=== PATIENT | female | born 1950 | race Caucasian/White ===

== ENCOUNTER → 2016-09-24 | Outpatient (CLI) | payer OTHER ==
--- NOTE | 2016-09-24 13:48 | DIAGNOSTIC IMAGING REPORT ---
ULTRASOUND OF THE CAROTID ARTERIES CLINICAL HISTORY: Strokelike symptoms. COMPARISON STUDY: No priors. TECHNIQUE: Real-time, grayscale, and color Doppler sonography of the carotid arteries is performed. Images are reviewed in the transverse and longitudinal planes. FINDINGS: Blood pressure in the right arm measures 144/81 and blood pressure in the left arm measures 140/76. The carotid arteries are patent bilaterally and demonstrate antegrade flow. There is minimal atherosclerotic plaque seen. Normal doppler arterial waveforms are seen throughout. Velocity measurements are listed below. Common carotid peak systolic velocity (cm/sec): RIGHT: 86 LEFT: 75 ICA proximal peak systolic velocity (cm/sec): RIGHT: 47 LEFT: 65 ICA mid peak systolic velocity (cm/sec): RIGHT: 66 LEFT: 57 ICA distal peak systolic velocity (cm/sec): RIGHT: 59 LEFT: 59 ICA/CC peak systolic ratio: RIGHT: 0.8 LEFT: 0.9 Antegrade flow was shown in the vertebral arteries. The external carotid arteries are patent. IMPRESSION: 1. There is no sonographic evidence of hemodynamically significant stenosis in the right or left carotid arterial system. 2. Antegrade flow is shown in the vertebral arteries. Electronically signed by: Neal Varma M.D. 09/24/2016 1:47 PM Dictated Date/Time: 09/24/2016 1:45 PM
--- NOTE | 2016-09-24 14:32 | DIAGNOSTIC IMAGING REPORT ---
CT ANGIOGRAM OF THE BRAIN COMBO CLINICAL HISTORY: Follow-up stroke. COMPARISON STUDY: No prior studies are available for comparison at the time of dictation. TECHNIQUE: Before and following the IV administration of 94 cc of Optiray 320, CT angiogram of the brain was performed from the skull base to the vertex. Images are reviewed in the axial, sagittal, and coronal planes. 3-D MIPS images are created and assessed. IV contrast was administered without complication. CT DOSE: 731.86 mGy.cm FINDINGS: Brain parenchyma: There are age-related involutional changes noting moderate to advanced confluent subcortical and periventricular microangiopathic disease. Chronic appearing lacunar infarcts are identified within the basal ganglia bilaterally. A chronic appearing infarct is also seen in the left cerebellar hemisphere. There is no hemorrhage, mass effect, or evidence of acute territorial ischemia by CT criteria. There is no evidence of enhancing mass lesion on the angiogram phase images. No extra-axial fluid collection is seen. Modi-white matter differentiation is preserved. Ventricles, sulci, and cisterns: Normal in configuration. CT angiogram of the brain: There is atherosclerotic calcification of the cavernous carotid arteries. The [place] of [place] is developmentally complete. The internal carotid arteries are widely patent, as are the anterior and middle cerebral arteries. The vertebrobasilar system and posterior cerebral arteries are widely patent. The vertebral arteries are codominant. There is no aneurysm, high-grade stenosis, or focal vessel cutoff identified throughout the intracranial circulation. Dural sinuses: Clear as visualized. Orbits: The bony orbits are intact. The orbital contents are normal as visualized. Sinuses and mastoids: The visualized paranasal sinuses are clear. The mastoid air cells are well pneumatized. Calvarium: Unremarkable. IMPRESSION: 1. Senescent changes and chronic appearing infarcts as above. There is no hemorrhage, mass effect, or evidence of acute territorial ischemia by CT criteria. 2. Unremarkable CT angiogram of the brain. Electronically signed by: Neal Varma M.D. 09/24/2016 2:31 PM Dictated Date/Time: 09/24/2016 2:25 PM
--- NOTE | 2016-09-24 15:25 | ECHOCARDIOGRAM REPORT ---
*NOTICE TO RECEIVING [employer]Y This information is strictly Confidential and protected under [place] law. [place] law prohibits you from making any further disclosure of this information unless further disclosure is expressly permitted by the written consent of the person to whom it pertains or is authorized by law. A general authorization for the release of medical or other information is not sufficient for this purpose. Hospital accepts no responsibility if the information is made available to any other person, INCLUDING THE PATIENT. Interpretation Summary * Name: WILLIAM GROSS Study Date: 09/24/2016 03:22 PM BP: 139/75 mmHg * Patient Location: [facility] HR: 54 * : 1950 (M/d/yyyy) Gender: Female Height: 69 in * Age: 66 yrs Ethnicity: [place] Weight: 210 lb * Ordering Physician: Kyleigh Aguiar * Referring Physician: Kyleigh AguiarOKristal * Performed By: Gavi Terrell RDCS * * Reason For Study: CVA * BSA: 2.1 m2 * History: CVA * -- Conclusions -- * Left ventricular systolic function is normal. * No regional wall motion abnormalities noted. * Ejection Fraction = 60-65%. * There is severe concentric left ventricular hypertrophy. * Grade I diastolic dysfunction, (abnormal relaxation pattern). * Injection of contrast documented no interatrial shunt. Procedure Details * A saline contrast injection was performed to assess for cardiac shunting. * The injection was performed through an intravenous line in the left arm. * The attending nurse who injected the saline contrast was JESUS BELL RN. * A total of 20 cc of agitated saline was given. Left Ventricle * The left ventricular cavity is small. * There is severe concentric left ventricular hypertrophy. * Ejection Fraction = 60-65%. * Left ventricular systolic function is normal. * No regional wall motion abnormalities noted. Right Ventricle * The right ventricle is not well visualized. * The right ventricular systolic function is normal as assessed by tricuspid annular plane systolic excursion (TAPSE) (normal >1.5 cm). Atria * The left atrium is mildly dilated. * Right atrial size is normal. * Injection of contrast documented no interatrial shunt. Mitral Valve * The mitral valve anatomy is normal. * There is no mitral valve stenosis. * Significant mitral regurgitation is absent. Tricuspid Valve * The tricuspid valve is not well visualized, but is grossly normal. * Significant tricuspid regurgitation is absent. Aortic Valve * The aortic valve is normal in structure and function. * No hemodynamically significant valvular aortic stenosis. * There is no significant aortic regurgitation. Pulmonic Valve * The pulmonary valve is not well seen, but the Doppler examination is normal without significant regurgitation or stenosis. * Trace pulmonic valvular regurgitation. Great Vessels * The aortic root is normal size. Pericardium/Pleural * There is no pericardial effusion. Great Vessels * Normal inferior vena cava size and collapsability with sniff indicates a normal right atrial pressure of 3 mmHg Left Ventricular Diastolic Function * Grade I diastolic dysfunction, (abnormal relaxation pattern). MMode 2D Measurements and Calculations IVSd 1.7 cm IVSs 2.0 cm LVIDd 5.2 cm LVIDs 3.4 cm LVPWd 1.2 cm LVPWs 2.1 cm IVS/LVPW 1.4 FS 33.9 % EDV(Teich) 128.4 ml ESV(Teich) 48.4 ml EF(Teich) 62.4 % EDV(cubed) 139.1 ml ESV(cubed) 40.3 ml EF(cubed) 71.1 % % IVS thick 18.5 % % LVPW thick 72.6 % LV mass(C)d 331.7 grams LV mass(C)dI 157.3 grams/m\S\2 LV mass(C)s 330.4 grams LV mass(C)sI 156.7 grams/m\S\2 SV(Teich) 80.1 ml SI(Teich) 38.0 ml/m\S\2 SV(cubed) 98.9 ml SI(cubed) 46.9 ml/m\S\2 Ao root diam 3.4 cm Ao root area 9.1 cm\S\2 LA dimension 3.8 cm LA/Ao 1.1 LVAd ap4 29.7 cm\S\2 LVLd ap4 7.4 cm EDV(MOD-sp4) 94.9 ml EDV(sp4-el) 101.1 ml LVAs ap4 17.9 cm\S\2 LVLs ap4 6.6 cm ESV(MOD-sp4) 42.2 ml ESV(sp4-el) 41.4 ml EF(MOD-sp4) 55.5 % EF(sp4-el) 59.0 % LVAd ap2 23.2 cm\S\2 LVLd ap2 8.0 cm EDV(MOD-sp2) 58.7 ml EDV(sp2-el) 57.2 ml LVAs ap2 12.5 cm\S\2 LVLs ap2 6.2 cm ESV(MOD-sp2) 22.5 ml ESV(sp2-el) 21.5 ml EF(MOD-sp2) 61.8 % EF(sp2-el) 62.5 % LVLd %diff 7.6 % EDV(MOD-bp) 73.7 ml LVLs %diff -6.65 % ESV(MOD-bp) 31.6 ml EF(MOD-bp) 57.1 % SV(MOD-sp4) 52.7 ml SI(MOD-sp4) 25.0 ml/m\S\2 SV(MOD-sp2) 36.3 ml SI(MOD-sp2) 17.2 ml/m\S\2 SV(MOD-bp) 42.1 ml SI(MOD-bp) 20.0 ml/m\S\2 SV(sp4-el) 59.7 ml SI(sp4-el) 28.3 ml/m\S\2 SV(sp2-el) 35.8 ml SI(sp2-el) 17.0 ml/m\S\2 Doppler Measurements and Calculations MV E max ana paula 56.9 cm/sec MV A max ana palua 85.0 cm/sec MV E/A 0.67 MV dec time 0.25 sec Ao V2 max 150.7 cm/sec Ao max PG 9.1 mmHg Ao max PG (full) 3.4 mmHg LV V1 max PG 5.7 mmHg LV V1 max 119.4 cm/sec TR max ana paula 235.5 cm/sec
== END | disposition home or self-care (01) ==
LOC: C.ULTR 13:08
PROVIDERS: ATTEND Psychiatry & Neurology Neurology
DX: I63.9 Cerebral infarction, unspecified (principal); I51.7 Cardiomegaly; I65.23 Occlusion and stenosis of bilateral carotid arteries; I25.10 Atherosclerotic heart disease of native coronary artery without angina pectoris

== ENCOUNTER → 2016-10-01 | Outpatient (CLI) | payer OTHER ==
[2016-10-01 14:43] LABS: BASO % 0.8 %; BASO ABS # 0.07 K/uL (0-0.2); EOS % 3.3 %; HEMATOCRIT 34.2 % (37-47); IG% 0.4 %; LYMPH % 33.2 %; LYMPH ABS # 2.98 K/uL (1.2-3.4); MEAN CELL VOLUME 62.6 fL (80-100); MEAN CORPUSCULAR HEMOGLOBIN 19.6 pg (25-34); MEAN CORPUSCULAR HGB CONC 31.3 g/dl (32-36); MONO % 4.9 %; NEUT % 57.4 %; PLATELET COUNT 215 K/uL (130-400); RED BLOOD COUNT 5.46 M/uL (4.2-5.4); WHITE BLOOD COUNT 8.97 K/uL (4.8-10.8)
[2016-10-01 14:56] LABS: BLOOD UREA NITROGEN 10 mg/dl (7-18); BUN/CREATININE RATIO 10.4 (10-20); CARBON DIOXIDE 25 mmol/L (21-32); CHLORIDE 105 mmol/L (98-107); CREATININE 0.92 mg/dl (0.60-1.20); GLUCOSE 167 mg/dl (70-99); POTASSIUM 3.3 mmol/L (3.5-5.1); SODIUM 140 mmol/L (136-145)
[2016-10-01 16:12] LABS: COMPLETE YES; MICROCYTOSIS PRESENT; OVALOCYTES 1+
== END | disposition home or self-care (01) ==
LOC: C.LAB1850 12:39
PROVIDERS: ATTEND Nurse Practitioner Adult Health
DX: F32.9 Major depressive disorder, single episode, unspecified (principal); R41.3 Other amnesia; E03.9 Hypothyroidism, unspecified

== ENCOUNTER → 2017-01-02 | Outpatient (CLI) | payer OTHER ==
[2017-01-02 17:32] LABS: BASO % 0.9 %; BASO ABS # 0.09 K/uL (0-0.2); EOS % 2.8 %; HEMATOCRIT 34.4 % (37-47); IG% 0.2 %; LYMPH % 33.5 %; LYMPH ABS # 3.22 K/uL (1.2-3.4); MEAN CELL VOLUME 61.2 fL (80-100); MEAN CORPUSCULAR HEMOGLOBIN 18.1 pg (25-34); MEAN CORPUSCULAR HGB CONC 29.7 g/dl (32-36); MONO % 4.4 %; NEUT % 58.2 %; PLATELET COUNT 223 K/uL (130-400); RED BLOOD COUNT 5.62 M/uL (4.2-5.4)
[2017-01-02 17:44] LABS: CHOLESTEROL/HDL RATIO 5.2
[2017-01-02 17:56] LABS: COMPLETE YES; ECHINOCYTES 2+; MICROCYTOSIS PRESENT
[2017-01-03 06:21] LABS: ESTIMATED AVERAGE GLUCOSE 263 mg/dl; HA1C FLAG Normal (Normal)
== END | disposition home or self-care (01) ==
LOC: C.LABPBG 11:32
PROVIDERS: ATTEND Nurse Practitioner Adult Health
DX: D64.9 Anemia, unspecified (principal); I67.9 Cerebrovascular disease, unspecified; R73.9 Hyperglycemia, unspecified

== ENCOUNTER → 2017-04-01 | Outpatient (CLI) | payer OTHER ==
[2017-04-01 17:53] LABS: BASO % 0.7 %; BASO ABS # 0.07 K/uL (0-0.2); EOS % 4.2 %; HEMATOCRIT 28.6 % (37-47); IG% 0.4 %; LYMPH ABS # 2.53 K/uL (1.2-3.4); MEAN CELL VOLUME 59.6 fL (80-100); MEAN CORPUSCULAR HEMOGLOBIN 17.3 pg (25-34); MONO % 5.2 %; NEUT % 62.5 %; PLATELET COUNT 284 K/uL (130-400); WHITE BLOOD COUNT 9.37 K/uL (4.8-10.8)
[2017-04-01 18:15] LABS: COMPLETE YES; ECHINOCYTES 1+; OVALOCYTES 1+; SCHISTOCYTES 1+
[2017-04-01 18:37] LABS: ALT/SGPT 27 U/L (12-78); AST/SGOT 15 U/L (15-37); BLOOD UREA NITROGEN 14 mg/dl (7-18); BUN/CREATININE RATIO 18.2 (10-20); CALCIUM 8.5 mg/dl (8.5-10.1); CARBON DIOXIDE 23 mmol/L (21-32); CHLORIDE 108 mmol/L (98-107); CREATININE 0.76 mg/dl (0.60-1.20); GLUCOSE 228 mg/dl (70-99); POTASSIUM 3.2 mmol/L (3.5-5.1); SODIUM 141 mmol/L (136-145)
[2017-04-01 18:38] LABS: ALB/GLOB RATIO 0.9 (0.9-2); ALKALINE PHOSPHATASE 76 U/L (45-117)
[2017-04-02 06:13] LABS: ESTIMATED AVERAGE GLUCOSE 169 mg/dl; HA1C FLAG Normal (Normal)
== END | disposition home or self-care (01) ==
LOC: C.LABPBG 13:54
PROVIDERS: ATTEND Nurse Practitioner Adult Health
DX: E11.65 Type 2 diabetes mellitus with hyperglycemia (principal); D64.9 Anemia, unspecified; I10 Essential (primary) hypertension

== ENCOUNTER → 2017-04-09 | Outpatient (CLI) | payer OTHER | END | disposition home or self-care (01) | LOC: C.LABPBG 14:17 | PROVIDERS: ATTEND Nurse Practitioner Adult Health | DX: E11.65 Type 2 diabetes mellitus with hyperglycemia (principal); Z86.39 Personal history of other endocrine, nutritional and metabolic disease ==

== ENCOUNTER → 2017-09-02 | Outpatient (CLI) | payer OTHER ==
[2017-09-02 17:59] LABS: ALBUMIN 3.9 gm/dl (3.4-5.0); ALT/SGPT 16 U/L (12-78); AST/SGOT 14 U/L (15-37); BLOOD UREA NITROGEN 14 mg/dl (7-18); CALCIUM 9.4 mg/dl (8.5-10.1); CARBON DIOXIDE 22 mmol/L (21-32); CREATININE 0.83 mg/dl (0.60-1.20); GLUCOSE 98 mg/dl (70-99); POTASSIUM 3.3 mmol/L (3.5-5.1); SODIUM 136 mmol/L (136-145); TOTAL PROTEIN 7.7 gm/dl (6.4-8.2)
[2017-09-02 18:11] LABS: ALKALINE PHOSPHATASE 61 U/L (45-117)
[2017-09-03 06:50] LABS: HEMOGLOBIN A1C 6.2 % (4.5-5.6)
== END | disposition home or self-care (01) ==
LOC: C.LABPBG 13:42
PROVIDERS: ATTEND Family Medicine
DX: E11.65 Type 2 diabetes mellitus with hyperglycemia (principal); E03.9 Hypothyroidism, unspecified